=== PATIENT | male | born 1995 | race Caucasian/White ===

== ENCOUNTER 2017-11-02 21:11 | Emergency (ER) | payer MEDICAID ==
[~2017-11-02] VITALS: Ht 170.2 cm; Wt 59.0 kg
[2017-11-02 21:49] VITALS: Ht 170.2 cm; Wt 59.0 kg
[2017-11-02 22:09] LABS: BASOPHILS 0.1 % (0-2); EOSINOPHILS 0.6 % (0-7); HEMATOCRIT 42.6 % (42.0-54.0); HEMOGLOBIN 15.1 g/dL (13.5-17.5); IMMATURE GRANULOCYTES 0.3 % (0-5); LYMPHOCYTES 11.9 % (15-50); MCHC 35.4 g/dL (31.0-37.0); MCV 81.9 fL (80.0-100.0); MEAN PLATELET VOLUME 10.1 fL (7.4-10.4); MONOCYTES 2.3 % (2-11); NEUTROPHILS 84.8 % (40-80); PLATELET COUNT 280 10x3/uL (130-400); RDW 13.1 % (11.5-14.5); WBC 14.2 10x3/uL (4.8-10.8)
[2017-11-02 22:12] LABS: APPEARANCE CLEAR (CLEAR); BILIRUBIN NEGATIVE (NEGATIVE); COLOR YELLOW (YELLOW); GLUCOSE NEGATIVE (NEGATIVE); KETONE NEGATIVE (NEGATIVE); NITRITE NEGATIVE (NEGATIVE); PROTEIN NEGATIVE (NEGATIVE); UROBILINOGEN NORMAL (NORMAL)
[2017-11-02 22:38] LABS: CALC OSMOLALITY 277 mosm/kg (275-300); CALCIUM 9.4 mg/dL (8.5-10.1); CARBON DIOXIDE 31.1 mmol/L (21.0-32.0); CHLORIDE - SERUM 102 mmol/L (98-107); GLUCOSE 102 mg/dL (74-106); SODIUM 140 mmol/L (136-145); THYROID STIMULATING HORMONE 1.76 uIU/mL (0.36-3.74); UREA NITROGEN 11 mg/dL (7-18); eGFR NON AFRICAN AMERICAN > 90 mL/min (90-120)
[2017-11-02 23:02] LABS: UDS - AMPHET NEGATIVE QUAL (NEGATIVE); UDS - BARB NEGATIVE QUAL (NEGATIVE); UDS - BENZO NEGATIVE QUAL (NEGATIVE); UDS - COCAINE NEGATIVE QUAL (NEGATIVE); UDS - OPIATE NEGATIVE QUAL (NEGATIVE); UDS - PCP NEGATIVE QUAL (NEGATIVE); UDS - THC NEGATIVE QUAL (NEGATIVE)
[2017-11-03 02:28] VITALS: BP 118/74
== END 2017-11-03 02:29 ==
LOC: D.ER 21:11
PROVIDERS: Family Medicine
DX: R45.851 Suicidal ideations (principal)

== ENCOUNTER 2017-12-30 13:47 | Emergency (ER) | payer MEDICAID ==
[~2017-12-30] VITALS: Ht 170.2 cm; Wt 63.6 kg
[2017-12-30 13:55] VITALS: Ht 170.2 cm; Wt 63.6 kg
[2017-12-30 14:57] LABS: BASOPHILS 0.2 % (0-2); EOSINOPHILS 1.7 % (0-7); HEMATOCRIT 45.2 % (42.0-54.0); HEMOGLOBIN 15.8 g/dL (13.5-17.5); IMMATURE GRANULOCYTES 0.4 % (0-5); LYMPHOCYTES 7.6 % (15-50); MCH 29.2 pg (26.0-34.0); MCV 83.4 fL (80.0-100.0); MEAN PLATELET VOLUME 10.1 fL (7.4-10.4); MONOCYTES 5.8 % (2-11); NEUTROPHILS 84.3 % (40-80); PLATELET COUNT 255 10x3/uL (130-400); RBC 5.42 10x6/uL (4.20-6.10); RDW 13.1 % (11.5-14.5); WBC 19.6 10x3/uL (4.8-10.8)
[2017-12-30 15:34] LABS: ALKALINE PHOSPHATASE 83 U/L (46-116); ALT (SGPT) 31 U/L (10-68); AMYLASE - SERUM 52 U/L (25-115); BILIRUBIN - TOTAL 0.47 mg/dL (0.2-1.3); CALC OSMOLALITY 283 mosm/kg (275-300); CALCIUM 9.4 mg/dL (8.5-10.1); CARBON DIOXIDE 29.3 mmol/L (21.0-32.0); CHLORIDE - SERUM 106 mmol/L (98-107); GLUCOSE 88 mg/dL (74-106); LIPASE 125 U/L (73-393); PROTEIN - SERUM 7.6 g/dL (6.4-8.2); SODIUM 144 mmol/L (136-145); TROPONIN-I < 0.017 ng/mL (0.000-0.060); UREA NITROGEN 8 mg/dL (7-18); eGFR NON AFRICAN AMERICAN > 90 mL/min (90-120)
[2017-12-30 15:55] LABS: APPEARANCE CLEAR (CLEAR); BILIRUBIN NEGATIVE (NEGATIVE); COLOR YELLOW (YELLOW); GLUCOSE NEGATIVE (NEGATIVE); KETONE NEGATIVE (NEGATIVE); NITRITE NEGATIVE (NEGATIVE); PROTEIN NEGATIVE (NEGATIVE); UROBILINOGEN NORMAL (NORMAL)
[2017-12-30 16:04] LABS: UDS - AMPHET NEGATIVE QUAL (NEGATIVE); UDS - BARB NEGATIVE QUAL (NEGATIVE); UDS - BENZO NEGATIVE QUAL (NEGATIVE); UDS - COCAINE NEGATIVE QUAL (NEGATIVE); UDS - OPIATE NEGATIVE QUAL (NEGATIVE); UDS - PCP NEGATIVE QUAL (NEGATIVE); UDS - THC NEGATIVE QUAL (NEGATIVE)
[2017-12-30] MEDS ORDERED: CIPRO500 MG PO (19:46)
[2017-12-30] MEDS ORDERED: FLAGYL500 MG PO (19:46)
[2017-12-30 20:05] VITALS: BP 107/68
== END 2017-12-30 20:05 | disposition home or self-care (01) ==
LOC: D.ER 13:47
PROVIDERS: Family Medicine
DX: K52.9 Noninfective gastroenteritis and colitis, unspecified (principal); R11.2 Nausea with vomiting, unspecified; F17.200 Nicotine dependence, unspecified, uncomplicated